=== PATIENT | male | born 1940 | race Caucasian/White ===

== ENCOUNTER 2023-06-21 14:01 | Observation (INO) | payer MEDICARE ==
[~2023-06-21] VITALS: Ht 172.7 cm; Wt 83.0 kg
[2023-06-21] VITALS (15 sets, daily range): BP systolic 100–178; BP diastolic 65–89
[2023-06-21] MEDS ORDERED: ARICEPT PO (14:38)
[2023-06-21] MEDS ORDERED: LOSARTAN POTASS50 MG PO (14:38)
[2023-06-21] MEDS ORDERED: METFORMIN HCL1000 MG PO (14:39)
[2023-06-21] MEDS ORDERED: JANUVIA100 MG PO (14:39)
[2023-06-21] MEDS ORDERED: METOPROLOL SUCC50 MG PO (14:39)
[2023-06-21] MEDS ORDERED: GLIPIZIDE ER2.5 MG PO (14:40)
[2023-06-21] MEDS ORDERED: AMLODIPINE BESY10 MG PO (14:40)
[2023-06-21] MEDS ORDERED: INDAPAMIDE2.5 MG PO (14:40)
[2023-06-21] MEDS ORDERED: NAPROXEN220 MG PO (14:41)
[2023-06-21] MEDS ORDERED: BAYER ASPIRIN E81 MG PO (14:42)
[2023-06-21] MEDS ORDERED: MULTIVITAMI1 PO (14:42)
[2023-06-21] MEDS ORDERED: VITAMIN D5000 UNI1 (14:43)
[2023-06-21] MEDS ORDERED: VITAMIN C500 M1 PO (14:43)
[2023-06-21 14:58] LABS: BASO% 0.7 % (0-3); EOS% 2.9 % (0-8); HEMATOCRIT 40.6 % (39.0-50.0); HEMOGLOBIN 13.8 g/dl (14.0-18.0); IMMATURE GRANULOCYTES 0.3 % (0.0-5.0); LYMPH% 23.9 % (15-41); MEAN CELL VOLUME 91.6 fL CALC (80.0-100.0); MEAN CORPUSCULAR HGB 31.2 pG CALC (26.0-32.0); NEUT# 3.56 thou/uL (1.82-7.42); NEUT% 60.2 % (42-76); RED BLOOD COUNT 4.43 mill/uL (4.70-6.10); RED CELL DISTRI WIDTH 12.1 % (11.5-15.5)
[2023-06-21 15:10] LABS: ALBUMIN 4.3 g/dL (3.2-5.0); ALKALINE PHOSPHATASE 43 u/l (38-126); BILIRUBIN, TOTAL 0.5 mg/dL (0.2-1.3); BUN 17 mg/dL (8-23); BUN/CREATININE RATIO 18 (12-20 (CALC)); CALCULATED LDLCHOLESTEROL 29 mg/dL (62-129 (CALC)); CARBON DIOXIDE 29 mmol/l (22-30); CHLORIDE 97 mmol/l (95-108); CHOLESTEROL HDL RATIO 2.5 (<4.4 (CALC)); CREATININE 0.9 mg/dL (0.7-1.3); GFR FOR AFR.AMER. > 60 ML/MIN (>=60 (CALC)); GFR OTHER RACES > 60 ML/MIN (>=60 (CALC)); HDL CHOLESTEROL 43 mg/dL (39.0-59.0); SGOT/AST 40 u/l (19-48); SODIUM 134 mmol/l (137-146); TOTAL CHOLESTEROL 108 mg/dl (0-199); TOTAL PROTEIN 7.8 g/dL (6.3-8.2); TOTAL TRIGLYCERIDES 181 mg/dl (0-149); VLDL CHOLESTROL 36 mg/dl (0-38 (CALC))
[2023-06-21 15:11] LABS: ANION GAP 11 (6-22 (CALC)); POTASSIUM 3.3 mmol/l (3.5-5.1)
[2023-06-21 15:14] LABS: INTERNATIONAL NORMALIZED RATIO 1.1 RATIO (0.7-1.3); PROTHROMBIN TIME 10.4 SECONDS (9.0-12.5)
[2023-06-21 15:54] LABS: URINE BILIRUBIN - DIPSTICK Negative (NEGATIVE); URINE BLOOD DIPSTICK Negative (NEGATIVE); URINE COLOR Yellow; URINE GLUCOSE - DIPSTICK Negative (NEGATIVE); URINE KETONE Negative (NEGATIVE); URINE LEUK ESTERASE Negative (NEGATIVE); URINE NITRITE - DIPSTICK Negative (Negative); URINE PROTEIN - DIPSTICK 100 mg/dL (NEG-TRACE); URINE UROBILINOGEN - DIPSTICK 0.2 E.U./dL (0.2)
[2023-06-21] MEDS ORDERED: SODIUM CHLORIDE 0.9% 1,000 ML IV PRN (17:45)
[2023-06-21] MEDS ORDERED: DEXTROSE 250 ML IV PRN (17:45)
[2023-06-21] MEDS ORDERED: ACETAMINOPHEN 325 MG/TAB PO PRN (17:45)
[2023-06-21] MEDS ORDERED: MAGNESIUM HYDROXIDE 30 ML UDC PO PRN (17:45)
[2023-06-21] MEDS ORDERED: hydrALAZINE HCL 20 MG/ML VIAL(1 ML) IV PRN (17:50)
[2023-06-21] MEDS ORDERED: ENOXAPARIN SODIUM 40 MG/0.4 ML SYR SC SCH (21:00)
[2023-06-21] MEDS ORDERED: INSULIN LISPRO 100 UNITS/ML ML SC SCH (21:00)
[2023-06-21] MEDS ORDERED: ATORVASTATIN CALCIUM 40 MG/TAB PO SCH (21:00)
[2023-06-22 00:19] VITALS: BP 141/61
[2023-06-22 05:04] VITALS: BP 158/64
[2023-06-22 06:12] LABS: BASO% 0.8 % (0-3); HEMATOCRIT 38.4 % (39.0-50.0); HEMOGLOBIN 13.1 g/dl (14.0-18.0); IMMATURE GRANULOCYTES 0.2 % (0.0-5.0); LYMPH% 26.1 % (15-41); MEAN CELL VOLUME 92.1 fL CALC (80.0-100.0); MEAN CORPUSCULAR HGB 31.4 pG CALC (26.0-32.0); MEAN CORPUSCULAR HGB CONC 34.1 g/dL CAL (32.0-36.0); MONO% 11.2 % (2-13); NEUT# 3.08 thou/uL (1.82-7.42); NEUT% 58.7 % (42-76); RED BLOOD COUNT 4.17 mill/uL (4.70-6.10); RED CELL DISTRI WIDTH 12.2 % (11.5-15.5)
[2023-06-22 06:16] LABS: ALBUMIN 3.7 g/dL (3.2-5.0); ALKALINE PHOSPHATASE 40 u/l (38-126); ANION GAP 8 (6-22 (CALC)); BILIRUBIN, TOTAL 0.5 mg/dL (0.2-1.3); BUN 13 mg/dL (8-23); BUN/CREATININE RATIO 15 (12-20 (CALC)); CALCULATED LDLCHOLESTEROL 31 mg/dL (62-129 (CALC)); CARBON DIOXIDE 29 mmol/l (22-30); CHLORIDE 103 mmol/l (95-108); CHOLESTEROL HDL RATIO 2.2 (<4.4 (CALC)); CREATININE 0.8 mg/dL (0.7-1.3); GFR FOR AFR.AMER. > 60 ML/MIN (>=60 (CALC)); GFR OTHER RACES > 60 ML/MIN (>=60 (CALC)); HDL CHOLESTEROL 42 mg/dL (39.0-59.0); MAGNESIUM 1.8 mg/dL (1.6-2.3); POTASSIUM 3.1 mmol/l (3.5-5.1); SGOT/AST 33 u/l (19-48); SODIUM 136 mmol/l (137-146); TOTAL CHOLESTEROL 94 mg/dl (0-199); TOTAL PROTEIN 6.8 g/dL (6.3-8.2); TOTAL TRIGLYCERIDES 105 mg/dl (0-149); VLDL CHOLESTROL 21 mg/dl (0-38 (CALC))
[2023-06-22 06:28] VITALS: BP 154/68
[2023-06-22] MEDS ORDERED: DONEPEZIL HCL 5 MG/TAB PO SCH (09:00)
[2023-06-22] MEDS ORDERED: LOSARTAN Potassium 50 MG/TAB PO SCH (09:00)
[2023-06-22] MEDS ORDERED: amLODIPine BESYLATE 5 MG/TAB PO SCH (09:00)
[2023-06-22] MEDS ORDERED: ASPIRIN 81 MG/TAB PO SCH (09:00)
[2023-06-22] MEDS ORDERED: METOPROLOL SUCCINATE 50 MG/TAB PO SCH (09:00)
[2023-06-22 11:12] VITALS: BP 140/62
[2023-06-22 15:12] VITALS: BP 173/71
[2023-06-22] MEDS ORDERED: amLODIPine BESYLATE 5 MG/TAB PO ONE (16:15)
[2023-06-22] MEDS ORDERED: CLOPIDOGREL BISULFATE 75 MG/TAB TAB PO SCH (16:31)
[2023-06-22 19:40] VITALS: BP 153/60
[2023-06-23 00:58] VITALS: BP 127/53
[2023-06-23 05:36] VITALS: BP 102/48
[2023-06-23] MEDS ORDERED: PLAVIX75 MG PO (06:17)
[2023-06-23 07:05] VITALS: BP 149/49
[2023-06-23 07:10] LABS: HEMATOCRIT 37.2 % (39.0-50.0); HEMOGLOBIN 12.4 g/dl (14.0-18.0); MEAN CELL VOLUME 92.3 fL CALC (80.0-100.0); MEAN CORPUSCULAR HGB 30.8 pG CALC (26.0-32.0); MEAN CORPUSCULAR HGB CONC 33.3 g/dL CAL (32.0-36.0); RED BLOOD COUNT 4.03 mill/uL (4.70-6.10)
[2023-06-23 07:47] LABS: ANION GAP 11 (6-22 (CALC)); BUN 23 mg/dL (8-23); BUN/CREATININE RATIO 23 (12-20 (CALC)); CARBON DIOXIDE 26 mmol/l (22-30); CHLORIDE 102 mmol/l (95-108); GFR FOR AFR.AMER. > 60 ML/MIN (>=60 (CALC)); GFR OTHER RACES > 60 ML/MIN (>=60 (CALC)); POTASSIUM 3.4 mmol/l (3.5-5.1); SODIUM 135 mmol/l (137-146)
[2023-06-23] MEDS ORDERED: CLOPIDOGREL BISULFATE 75 MG/TAB TAB PO SCH (09:00)
[2023-06-23] MEDS ORDERED: amLODIPine BESYLATE 5 MG/TAB PO SCH (09:00)
[2023-06-23 10:35] VITALS: BP 146/65
[2023-06-23 15:00] VITALS: BP 140/61
[2023-06-23 19:37] VITALS: BP 151/54
[2023-06-24 00:48] VITALS: BP 170/71
[2023-06-24 05:54] VITALS: BP 167/77
[2023-06-24 06:45] LABS: HEMATOCRIT 39.8 % (39.0-50.0); HEMOGLOBIN 13.4 g/dl (14.0-18.0); MEAN CELL VOLUME 92.3 fL CALC (80.0-100.0); MEAN CORPUSCULAR HGB 31.1 pG CALC (26.0-32.0); MEAN CORPUSCULAR HGB CONC 33.7 g/dL CAL (32.0-36.0); RED BLOOD COUNT 4.31 mill/uL (4.70-6.10); RED CELL DISTRI WIDTH 12.1 % (11.5-15.5)
[2023-06-24 07:16] LABS: ANION GAP 10 (6-22 (CALC)); BUN 15 mg/dL (8-23); BUN/CREATININE RATIO 19 (12-20 (CALC)); CARBON DIOXIDE 25 mmol/l (22-30); CHLORIDE 107 mmol/l (95-108); CREATININE 0.8 mg/dL (0.7-1.3); GFR FOR AFR.AMER. > 60 ML/MIN (>=60 (CALC)); GFR OTHER RACES > 60 ML/MIN (>=60 (CALC)); POTASSIUM 3.1 mmol/l (3.5-5.1); SODIUM 139 mmol/l (137-146)
[2023-06-24 07:49] VITALS: BP 142/77
[2023-06-24 09:02] VITALS: BP 160/71
[2023-06-24] MEDS ORDERED: POTASSIUM CHLORIDE 20 MEQ/PKT POWDER PO SCH (12:30)
[2023-06-24] MEDS ORDERED: ALPRAZolam 0.25 MG PO PRN (16:20)
[2023-06-24 16:21] VITALS: BP 164/69
[2023-06-24 19:18] VITALS: BP 161/62
[2023-06-25 00:09] VITALS: BP 120/48
[2023-06-25 05:17] VITALS: BP 173/76
[2023-06-25 05:38] LABS: HEMATOCRIT 40.1 % (39.0-50.0); HEMOGLOBIN 13.5 g/dl (14.0-18.0); MEAN CELL VOLUME 92.8 fL CALC (80.0-100.0); MEAN CORPUSCULAR HGB 31.3 pG CALC (26.0-32.0); MEAN CORPUSCULAR HGB CONC 33.7 g/dL CAL (32.0-36.0); RED BLOOD COUNT 4.32 mill/uL (4.70-6.10); RED CELL DISTRI WIDTH 12.4 % (11.5-15.5)
[2023-06-25 05:52] LABS: ANION GAP 9 (6-22 (CALC)); BUN 17 mg/dL (8-23); BUN/CREATININE RATIO 19 (12-20 (CALC)); CARBON DIOXIDE 26 mmol/l (22-30); CHLORIDE 106 mmol/l (95-108); CREATININE 0.9 mg/dL (0.7-1.3); GFR FOR AFR.AMER. > 60 ML/MIN (>=60 (CALC)); GFR OTHER RACES > 60 ML/MIN (>=60 (CALC)); POTASSIUM 3.1 mmol/l (3.5-5.1); SODIUM 138 mmol/l (137-146)
[2023-06-25 06:48] VITALS: BP 126/81
[2023-06-25] MEDS ORDERED: POTASSIUM CHLORIDE 20 MEQ/PKT POWDER PO SCH (09:00)
[2023-06-25 11:01] VITALS: BP 157/77
== END 2023-06-25 13:46 | disposition home or self-care (01) ==
LOC: ED 14:01 → ED-I 16:15 → ED 17:02 → MS2 17:03
PROVIDERS: Nurse Practitioner; ADMIT Student in an Organized Health Care Education/Training Program; ATTEND Student in an Organized Health Care Education/Training Program
DX: H53.2 Diplopia (principal); H02.402 Unspecified ptosis of left eyelid; I10 Essential (primary) hypertension; E11.59 Type 2 diabetes mellitus with other circulatory complications; E87.6 Hypokalemia; F03.A0 Unspecified dementia, mild, without behavioral disturbance, psychotic disturbance, mood disturbance, and anxiety; E78.5 Hyperlipidemia, unspecified; Z95.0 Presence of cardiac pacemaker; Z79.84 Long term (current) use of oral hypoglycemic drugs; Z86.16 Personal history of COVID-19; Z79.82 Long term (current) use of aspirin
CPT/HCPCS: J1650; Q9967

== ENCOUNTER 2023-07-09 21:57 | Emergency (ER) | payer MEDICARE, OTHER ==
[2023-07-09] VITALS (7 sets, daily range): BP systolic 134–153; BP diastolic 61–73
[~2023-07-09] VITALS: Ht 172.7 cm; Wt 77.0 kg
[~2023-07-09 21:57] MED LIST: AMLODIPINE BESY10 MG PO; ARICEPT PO; BAYER ASPIRIN E81 MG PO; GLIPIZIDE ER2.5 MG PO; INDAPAMIDE2.5 MG PO; JANUVIA100 MG PO; LOSARTAN POTASS50 MG PO; METFORMIN HCL1000 MG PO; METOPROLOL SUCC50 MG PO; MULTIVITAMI1 PO; NAPROXEN220 MG PO; PLAVIX75 MG PO; VITAMIN C500 M1 PO; VITAMIN D5000 UNI1
[2023-07-09 22:44] LABS: BASO% 0.5 % (0-3); EOS% 3.9 % (0-8); HEMATOCRIT 35.8 % (39.0-50.0); HEMOGLOBIN 12.1 g/dl (14.0-18.0); IMMATURE GRANULOCYTES 0.3 % (0.0-5.0); LYMPH% 9.2 % (15-41); MEAN CELL VOLUME 92.5 fL CALC (80.0-100.0); MEAN CORPUSCULAR HGB 31.3 pG CALC (26.0-32.0); MEAN CORPUSCULAR HGB CONC 33.8 g/dL CAL (32.0-36.0); MONO% 10.4 % (2-13); NEUT# 4.41 thou/uL (1.82-7.42); NEUT% 75.7 % (42-76); RED BLOOD COUNT 3.87 mill/uL (4.70-6.10); RED CELL DISTRI WIDTH 12.7 % (11.5-15.5)
[2023-07-09 22:48] LABS: URINE BILIRUBIN - DIPSTICK Negative (NEGATIVE); URINE BLOOD DIPSTICK Negative (NEGATIVE); URINE GLUCOSE - DIPSTICK Negative (NEGATIVE); URINE KETONE Trace mg/dL (NEGATIVE); URINE LEUK ESTERASE Negative (NEGATIVE); URINE NITRITE - DIPSTICK Negative (Negative); URINE PROTEIN - DIPSTICK >=300 mg/dL (NEG-TRACE); URINE SPECIFIC GRAVITY >=1.030; URINE UROBILINOGEN - DIPSTICK 0.2 E.U./dL (0.2)
[2023-07-09 22:58] LABS: URINE COLOR Yellow; URINE WBC 0-2 WBC/hpf (0-5)
[2023-07-09 22:59] LABS: URINE MUCUS FEW hpf (NONE-FEW)
[2023-07-09 23:00] LABS: ALBUMIN 3.8 g/dL (3.2-5.0); BILIRUBIN, TOTAL 0.4 mg/dL (0.2-1.3); CREATININE 1.4 mg/dL (0.7-1.3); POTASSIUM 3.7 mmol/l (3.5-5.1); TOTAL PROTEIN 6.8 g/dL (6.3-8.2)
[2023-07-09] MEDS ORDERED: SODIUM CHLORIDE 0.9% 1,000 ML IV ONE (23:30)
[2023-07-10 00:01] VITALS: BP 141/60
[2023-07-10 00:16] VITALS: BP 146/84
[2023-07-10 00:31] VITALS: BP 169/76
[2023-07-10 00:46] VITALS: BP 153/63
[2023-07-10 01:01] VITALS: BP 158/84
[2023-07-10 01:06] VITALS: BP 158/84
== END 2023-07-10 01:06 | disposition home or self-care (01) ==
LOC: ED 21:57
PROVIDERS: Family Medicine
DX: R05.9 Cough, unspecified (principal); R06.02 Shortness of breath; E11.9 Type 2 diabetes mellitus without complications; I10 Essential (primary) hypertension; F03.90 Unspecified dementia, unspecified severity, without behavioral disturbance, psychotic disturbance, mood disturbance, and anxiety; Z95.0 Presence of cardiac pacemaker; Z79.84 Long term (current) use of oral hypoglycemic drugs; Z79.4 Long term (current) use of insulin; Z20.822 Contact with and (suspected) exposure to COVID-19